=== PATIENT | male | born 1965 | race Caucasian/White ===

== ENCOUNTER → 2017-09-26 | Outpatient (CLI) | payer OTHER ==
--- NOTE | 2017-09-26 14:56 | XR ---
EXAMINATION TYPE: XR ankle complete RT DATE OF EXAM: 09/26/2017 COMPARISON: NONE HISTORY: Pain injury, worse lateral TECHNIQUE: Three-view right ankle FINDINGS: Minimal soft tissue prominence over the lateral malleolus. The ankle mortise is intact. No acute displaced fractures are evident. Follow-up exam can be performed 7-10 days from acute trauma for continued pain. IMPRESSION: 1. Mild soft tissue prominence lateral malleolus
== END | disposition home or self-care (01) ==
LOC: RADXRMAIN 14:30
PROVIDERS: ATTEND Emergency Medicine
DX: S93.401A Sprain of unspecified ligament of right ankle, initial encounter (principal); M25.571 Pain in right ankle and joints of right foot

== ENCOUNTER → 2017-10-13 | Outpatient (CLI) | payer OTHER ==
--- NOTE | 2017-10-13 09:54 | XR ---
EXAMINATION TYPE: XR ankle complete RT DATE OF EXAM: 10/13/2017 CLINICAL HISTORY: Right ankle injury and subsequent pain. TECHNIQUE: Frontal, lateral and oblique images of the right ankle are obtained. COMPARISON: 09/26/2017 FINDINGS: There is improved degree of soft tissue swelling over the lateral malleolus although a mild degree remains. Degenerative changes of the hindfoot are seen as talotibial osteophytic spurring/bon y productive change. There is no acute fracture/dislocation evident in the right ankle. The ankle mo rtise appears within normal limits. IMPRESSION: 1. No acute fracture or dislocation in the right ankle. 2. Improved degree of soft tissue swelling over the lateral malleolus in comparison to the prior. Giv en the patient's persistent pain MR could be performed to evaluate for ligamentous and tendinous inju ry. 3. Mild hindfoot arthropathy.
== END | disposition home or self-care (01) ==
LOC: RADXRMAIN 09:33
PROVIDERS: ATTEND Emergency Medicine
DX: M79.89 Other specified soft tissue disorders (principal); M12.9 Arthropathy, unspecified

== ENCOUNTER → 2017-10-24 | Outpatient (CLI) | payer OTHER ==
--- NOTE | 2017-10-24 09:31 | MR ---
EXAMINATION TYPE: MR ankle RT wo con DATE OF EXAM: 10/24/2017 COMPARISON: Radiographs 10/13/2017 HISTORY: 52-year-old male Sprain of ligament of right ankle TECHNIQUE: Multiplanar, multisequence images of the right ankle were obtained without IV contrast. FINDINGS: Evaluation of the osseous structures shows degenerative spurring at the tibiotalar joint diffuse cart ilage thinning and a focal linear moderate to high-grade cartilage defect measuring 3 mm wide and 1.9 cm AP along the talar dome, refer to axial image 21. A smaller cartilage fissure is present just pos teriorly and laterally, axial image 21. Moderate ankle joint effusion with associated synovitis. Additional effusion in the posterior subtala r joint also extending along the anterior recess with adjacent ganglion cysts of the sinus tarsi shaina uring up to 1.9 x 0.9 cm. Preserved fatty signal within the sinus tarsi. The tarsal tunnel itself is clear. The syndesmotic ligaments are dark but prominently thickened. Anterior extensor tendons are intact. There is thickening and intermediate signal along the ATFL with anterior bowing convexity. Diffuse he terogeneity of the PTFL and fiber disorganization. A deep strand appears intact. Thickening and inter mediate signal of the CFL. Incidental low muscle belly of the peroneal brevis extending to just below the lateral malleolus. The re is mild tenosynovial fluid along the peroneal tendons and suggestion of a split tear of the peron eus brevis for a length of 2 cm distending down from the level of the malleolus (axial T2 fat sat fabiola ges 11, 12, and 13. Mild tenosynovial fluid along the distal peroneus longus along the plantar aspect of the foot near its insertion. There is mild edematous signal along the intact fibers of the deep posterior deltoid ligament. The sp ring ligament complex appears intact. Mild tenosynovial fluid along the plantar flexor hallucis longus prior to the knot of Jad and along the posterior tibial tendon which all appear intact. The Achilles tendon is intact. Origin of the plantar fascia is intact. Degenerative signal changes along the mid foot TMT joints. No suspicious bone marrow replacement. IMPRESSION: 1. 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 Add itional midfoot osteoarthritic changes. 2. Grade 2 sprains of the ATFL and PTFL. Low-grade sprain of the CFL. Low-grade sprain deltoid ligame nt. 3. Old sprains to the syndesmosis. 4. A 2 cm long split tear of the peroneus brevis extending down from the malleolus. No retracted tear . Incidental low muscle belly of the peroneus brevis. 5. Scattered mild tenosynovitis involving the posterior tibial tendon, peroneal tendons, and plantar aspect of the flexor hallucis longus. 6. Small sinus tarsi ganglion cysts measuring up to 1.9 x 0.9 cm.
== END | disposition home or self-care (01) ==
LOC: RADMRIMAIN 07:03
PROVIDERS: ATTEND Emergency Medicine
DX: S93.431D Sprain of tibiofibular ligament of right ankle, subsequent encounter (principal); S86.311A Strain of muscle(s) and tendon(s) of peroneal muscle group at lower leg level, right leg, initial encounter; M19.071 Primary osteoarthritis, right ankle and foot; M65.871 Other synovitis and tenosynovitis, right ankle and foot; M67.471 Ganglion, right ankle and foot

== ENCOUNTER → 2018-01-29 | Outpatient (CLI) | payer BC ==
--- NOTE | 2018-01-29 13:15 | MR ---
EXAMINATION TYPE: MR brain wo/w con DATE OF EXAM: 01/29/2018 COMPARISON: None HISTORY: 52-year-old male Headaches, Occular migraine TECHNIQUE: Multiplanar, multisequence images of the brain and brainstem is performed without and with IV contrast, utilizing 12 mL intravenous Gadavist . FINDINGS: Diffusion weighted images demonstrate no evidence of a recent infarct or other diffusion abnormality. There is no extra-axial fluid collection or significant white matter signal abnormality. T2/FLAIR weighted sequences show no white matter signal abnormality. Major intracranial flow voids are intact. The ventricular system and cisternal spaces are normal in size and appearance. The brain volume is age appropriate with very mild cortical volume loss. Midline structures demonstrate normal morphology. The craniocervical junction appears within normal limits. Post contrast images demonstrate no abnormal enhancement. The dural venous sinuses appear patent. The visualized sinuses are clear and the globes are intact. IMPRESSION: No acute intracranial abnormality seen. No white matter signal changes or enhancing lesions.
== END | disposition home or self-care (01) ==
LOC: RADMRIMAIN 11:58
PROVIDERS: ATTEND Ophthalmology
DX: G43.109 Migraine with aura, not intractable, without status migrainosus (principal)
CPT/HCPCS: 70553; A9581

== ENCOUNTER 2022-03-25 18:31 | Emergency (ER) | payer BC ==
[2022-03-25 18:36] VITALS: BP 130/84; RESP 18; TEMP 97.9
[2022-03-25] MEDS ORDERED: SODIUM CHLORIDE 0.9% 1,000 ML IV STA (19:02)
[2022-03-25] MEDS ORDERED: SODIUM CHLORIDE 0.9% 500 ML 500 ML IV STA (19:02)
[2022-03-25 19:09] VITALS: PULSE 92
[2022-03-25 19:13] LABS: Basophils # (A) 0.2 k/uL (0-0.2); Basophils % (A) 2 %; Eosinophils # (A) 0.2 k/uL (0-0.7); Eosinophils % (A) 2 %; HCT 51.3 % (39.0-53.0); HGB 17.1 gm/dL (13.0-17.5); Lymphocytes # (A) 1.6 k/uL (1.0-4.8); Lymphocytes % (A) 15 %; MCH 30.2 pg (25.0-35.0); MCHC 33.4 g/dL (31.0-37.0); MCV 90.2 fL (80.0-100.0); Mean Platelet Volume 7.5; Monocytes # (A) 0.5 k/uL (0-1.0); Monocytes % (A) 5 %; Neutrophils # (A) 8.4 k/uL (1.3-7.7); Neutrophils % (A) 76 %; Platelet Count 336 k/uL (150-450); RBC 5.68 m/uL (4.30-5.90); RDW 12.6 % (11.5-15.5); WBC 11.1 k/uL (3.8-10.6)
[2022-03-25 19:21] LABS: ALT 33 U/L (4-49); AST 36 U/L (17-59); African American GFR (CKD) >90 (>60 ml/min/1.73 sqM); Albumin 4.8 g/dL (3.5-5.0); Alkaline Phosphatase 62 U/L (38-126); Anion Gap 17 mmol/L; Blood Urea Nitrogen 16 mg/dL (9-20); Calcium 9.4 mg/dL (8.4-10.2); Carbon Dioxide 24 mmol/L (22-30); Chloride 96 mmol/L (98-107); Glucose 178 mg/dL (74-99); Magnesium 1.7 mg/dL (1.6-2.3); Non-African American GFR(CKD) >90 (>60 ml/min/1.73 sqM); Potassium 3.2 mmol/L (3.5-5.1); Sodium 137 mmol/L (137-145); Total Bilirubin 1.1 mg/dL (0.2-1.3); Total Protein 7.8 g/dL (6.3-8.2)
[2022-03-25 19:23] LABS: INR 0.9 (<1.2); Partial Thromboplastin Time 24.4 sec (22.0-30.0); Prothrombin Time 9.9 sec (9.0-12.0)
--- NOTE | 2022-03-25 20:13 | XR ---
EXAMINATION TYPE: XR chest 2V DATE OF EXAM: 03/25/2022 COMPARISON: 04/07/2011 HISTORY: Dysrhythmia TECHNIQUE: 2 views FINDINGS: Heart and mediastinum are normal. Lungs are clear. Diaphragm is normal. Bony thorax is inta ct. IMPRESSION: Normal chest. No change.
[2022-03-25] MEDS ORDERED: POTASSIUM CHLORIDE ER 20 MEQ TAB.ER PO STA (20:30)
--- NOTE | 2022-03-25 20:39 | ED ---
Arrhythmia/Palpitations HPI - General Chief Complaint: Arrhythmia/Palpitations Stated Complaint: fast heart rate Time Seen by Provider: 03/25/22 18:50 Source: patient Mode of arrival: wheelchair Limitations: no limitations - History of Present Illness Initial Comments: This 56-year-old male presents with a complaint of a fast heart rate. He states that he essentially has been asymptomatic with this but noted on his fit bit watched that his heart rate was approximately 160. This is been present for the last 3 hours. He denies any chest pain, shortness of breath, lightheadedness, or other symptomatology. He was able to check his pulse and also noted that it was approximately 144. This was occurring while at rest. He denies any known previous heart arrhythmias. He's never had atrial fibrillation or SVT in the past. He has followed up with a another classified advertising manager was not in her system in the past. He has had a recent stress test which is negative. He denies any leg pain or swelling. No other complaints or modifying factors. - Related Data Allergies Allergy/AdvReac Type Severity Reaction Status Date / Time Penicillins Allergy Rash/Hives Verified 03/25/22 18:36 Review of Systems ROS Statement: Those systems with pertinent positive or pertinent negative responses have been documented in the HPI. ROS Other: All systems not noted in ROS Statement are negative. Past Medical History Past Medical History: Hypertension History of Any Multi-Drug Resistant Organisms: None Reported Past Surgical History: Cholecystectomy, Orthopedic Surgery Additional Past Surgical History / Comment(s): roseanna knee surgeries Past Psychological History: No Psychological Hx Reported Smoking Status: Never smoker Past Alcohol Use History: None Reported Past Drug Use History: None Reported General Exam - General Exam Comments Initial Comments: GENERAL: The patient is well nourished and well hydrated. VITAL SIGNS: Heart rate, blood pressure, respiratory rate reviewed as recorded in nurse's notes. EYES: Pupils are round and reactive. Extraocular movements are intact. No conjunctival / lid redness or swelling. ENT: No external evidence of injury, swelling, or ecchymosis. Airway is patent. Throat is clear. NECK: Nontender. No swelling or evidence of injury. No subcutaneous emphysema. Trachea is midline. No thyroid mass. HEART: Regular rate and rhythm. Good peripheral pulses. LUNGS/CHEST: Breath sounds clear and equal bilaterally. No rales, rhonchi, or wheezes. No ecchymosis, subcutaneous emphysema, or tenderness. ABDOMEN: Abdomen soft without tenderness. No palpable masses or organomegaly. No peritoneal signs. No abdominal wall swelling or ecchymosis. EXTREMITIES: No extremity tenderness. Normal muscle tone and function. No thoracolumbar tenderness. NEUROLOGIC: Sensation is grossly intact. Cranial nerve exam reveals face is symmetrical, tongue is midline, speech is clear. SKIN: No abrasions or ecchymosis is noted. No induration or masses noted. PSYCHIATRIC: Alert and oriented. Appropriate behavior and judgment. Limitations: no limitations Course Vital Signs 03/25/22 03/25/22 18:34 19:02 Temperature 97.9 F Pulse Rate 160 H 92 Respiratory 18 18 Rate Blood Pressure 130/84 O2 Sat by Pulse 98 Oximetry Medical Decision Making - Medical Decision Making The patient was seen and examined. All diagnostics were reviewed. When he came into triage his heart rate apparently was 160. He was brought back to resuscitation bay 2 and by the time I go in to evaluate him he apparently had converted to a normal sinus rhythm. The elevated heart rate apparently was not caught on rhythm strip or EKG. She does show me his felt that which shows that he had been elevated in the 160 range for several hours. His EKG shows a normal sinus rhythm at a rate of 96. There is no acute ST-T wave changes identified. The SD intervals 186, QRS duration is 114, and QTC intervals 410. The chest x- ray does not show any acute process. The laboratory shows mild hypokalemia and he is given 40 mEq of potassium orally. He denies any excessive caffeine intake. He is never had this previously. Overall, it is felt as though he likely did have an episode of either atrial fibrillation or SVT. He is been asymptomatic. It is felt as though he stable for discharge. Hemato-may follow- up with his primary classified advertising manager but also is given Dr. Vela's follow-up information for electrophysiology cardiology. Patient is agreeable with this plan and leaves in no distress. - Lab Data Result diagrams: 03/25/22 18:48 03/25/22 18:48 Lab Results 03/25/22 03/25/22 03/25/22 Range/Units 18:48 18:48 18:48 WBC 11.1 H (3.8-10.6) k/uL RBC 5.68 (4.30-5.90) m/uL Hgb 17.1 (13.0-17.5) gm/dL Hct 51.3 (39.0-53.0) % MCV 90.2 (80.0-100.0) fL MCH 30.2 (25.0-35.0) pg MCHC 33.4 (31.0-37.0) g/dL RDW 12.6 (11.5-15.5) % Plt Count 336 (150-450) k/uL MPV 7.5 Neutrophils % 76 % Lymphocytes % 15 % Monocytes % 5 % Eosinophils % 2 % Basophils % 2 % Neutrophils # 8.4 H (1.3-7.7) k/uL Lymphocytes # 1.6 (1.0-4.8) k/uL Monocytes # 0.5 (0-1.0) k/uL Eosinophils # 0.2 (0-0.7) k/uL Basophils # 0.2 (0-0.2) k/uL PT 9.9 (9.0-12.0) sec INR 0.9 (<1.2) APTT 24.4 (22.0-30.0) sec Sodium 137 (137-145) mmol/L Potassium 3.2 L (3.5-5.1) mmol/L Chloride 96 L (98-107) mmol/L Carbon Dioxide 24 (22-30) mmol/L Anion Gap 17 mmol/L BUN 16 (9-20) mg/dL Creatinine 0.90 (0.66-1.25) mg/dL Est GFR (CKD-EPI)AfAm >90 (>60 ml/min/1.73 sqM) Est GFR (CKD-EPI)NonAf >90 (>60 ml/min/1.73 sqM) Glucose 178 H (74-99) mg/dL Calcium 9.4 (8.4-10.2) mg/dL Magnesium 1.7 (1.6-2.3) mg/dL Total Bilirubin 1.1 (0.2-1.3) mg/dL AST 36 (17-59) U/L ALT 33 (4-49) U/L Alkaline Phosphatase 62 (38-126) U/L Troponin I (0.000-0.034) ng/mL Total Protein 7.8 (6.3-8.2) g/dL Albumin 4.8 (3.5-5.0) g/dL TSH 0.939 (0.465-4.680) mIU/L 03/25/22 Range/Units 18:48 WBC (3.8-10.6) k/uL RBC (4.30-5.90) m/uL Hgb (13.0-17.5) gm/dL Hct (39.0-53.0) % MCV (80.0-100.0) fL MCH (25.0-35.0) pg MCHC (31.0-37.0) g/dL RDW (11.5-15.5) % Plt Count (150-450) k/uL MPV Neutrophils % % Lymphocytes % % Monocytes % % Eosinophils % % Basophils % % Neutrophils # (1.3-7.7) k/uL Lymphocytes # (1.0-4.8) k/uL Monocytes # (0-1.0) k/uL Eosinophils # (0-0.7) k/uL Basophils # (0-0.2) k/uL PT (9.0-12.0) sec INR (<1.2) APTT (22.0-30.0) sec Sodium (137-145) mmol/L Potassium (3.5-5.1) mmol/L Chloride (98-107) mmol/L Carbon Dioxide (22-30) mmol/L Anion Gap mmol/L BUN (9-20) mg/dL Creatinine (0.66-1.25) mg/dL Est GFR (CKD-EPI)AfAm (>60 ml/min/1.73 sqM) Est GFR (CKD-EPI)NonAf (>60 ml/min/1.73 sqM) Glucose (74-99) mg/dL Calcium (8.4-10.2) mg/dL Magnesium (1.6-2.3) mg/dL Total Bilirubin (0.2-1.3) mg/dL AST (17-59) U/L ALT (4-49) U/L Alkaline Phosphatase (38-126) U/L Troponin I <0.012 (0.000-0.034) ng/mL Total Protein (6.3-8.2) g/dL Albumin (3.5-5.0) g/dL TSH (0.465-4.680) mIU/L Disposition Clinical Impression: Tachyarrhythmia Disposition: HOME SELF-CARE Condition: Good Instructions (If sedation given, give patient instructions): Heart Palpitations (ED) Is patient prescribed a controlled substance at d/c from ED?: No Referrals: Claudio Faulkner MD [STAFF PHYSICIAN] - 1-2 days Paulo Souza DO [Primary Care Provider] - 1-2 days Time of Disposition: 20:39
== END 2022-03-25 20:41 | disposition home or self-care (01) ==
LOC: EC 18:31
DX: R00.0 Tachycardia, unspecified (principal); I10 Essential (primary) hypertension; Z88.0 Allergy status to penicillin
CPT/HCPCS: 36415; 71046; 80053; 83735; 84443; 84484; 85025; 85610; 85730; 93005; 96360; 99285